=== PATIENT | female | born 1980 | race Caucasian/White ===

== ENCOUNTER 2019-08-20 17:40 | Emergency (ER) | payer OTHER ==
[~2019-08-20] VITALS: Ht 149.9 cm; Wt 54.4 kg
--- NOTE | 2019-08-20 17:42 | NUR ---
Patient was assisted by casino floor walker RA 62 [facility] to ER Bed 14 when the patient suddenly loss her balance and hit her head on the bed. -KO. Hematoma noted on the forehead and reported to AD Bass.
--- NOTE | 2019-08-20 18:12 | NUR ---
PT BROUGHT IN TO EMERGENCY ROOM FOR C/C ETOH ABUSE WILL CONTIUE TO MONITOR
--- NOTE | 2019-08-20 18:21 | NUR ---
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
[2019-08-20 18:26] LABS: BASOPHILS # (AUTO) 0.1 /CMM (0.0-0.2); BASOPHILS % (AUTO) 0.5 % (0.0-2.0); EOSINOPHILS % (AUTO) 0.9 % (0.0-6.0); HEMATOCRIT 38 % (33-45); HEMOGLOBIN 12.4 g/dL (11.5-14.8); LYMPHOCYTES # (AUTO) 2.9 /CMM (0.8-4.8); LYMPHOCYTES % (AUTO) 30.6 % (20.0-44.0); MEAN CORPUSCULAR HGB CONC 33 g/dl (31.0-36.0); MEAN CORPUSCULAR VOLUME 92 fL (82-100); MONOCYTES # (AUTO) 0.5 /CMM (0.1-1.30); MONOCYTES % (AUTO) 5.7 % (2.0-12.0); NEUTROPHILS % (AUTO) 62.3 % (43.0-81.0); PLATELET COUNT (AUTO) 392 /CMM (150-450); RED BLOOD CELL COUNT(AUTO) 4.14 MIL/uL (4.0-5.2); WHITE BLOOD COUNT (AUTO) 9.6 K/uL (4.3-11.0)
[2019-08-20] MEDS ORDERED: IV NS 0.9% 1,000 ML BAG IV ONE (18:30)
[2019-08-20 18:52] LABS: ALBUMIN 2.9 g/dL (3.4-5.0); BILIRUBIN,DIRECT 0.1 mg/dL (0.0-0.2); BILIRUBIN,TOTAL 0.2 mg/dL (0.2-1.0); CALCIUM, SERUM 8.3 mg/dL (8.5-10.1); CREATININE 0.7 mg/dL (0.6-1.3); TOTAL PROTEIN, SERUM 6.6 g/dL (6.4-8.2)
[2019-08-20 18:55] LABS: POTASSIUM 2.7 mmol/L (3.5-5.1)
[2019-08-20] MEDS ORDERED: POTASSIUM CL. PREMIX PERIPHER. 50 ML ONE (20:35)
[2019-08-20] MEDS ORDERED: POTASSIUM CL. PREMIX PERIPHER. 50 ML IV SCH (21:00)
--- NOTE | 2019-08-20 23:40 | NUR ---
PT WOKE UP AND BECAME VERBALLY AGGRESSIVE. ATTEMPTED TO ELOPE FROM FACILITY. PT ESCORTED BACK TO BED. HOSPITAL SECURITY AT BEDSIDE AND DR. CONNIE SHAIKH.
--- NOTE | 2019-08-20 23:55 | NUR ---
PT REMAINS CALM AND COOPERATIVE. VITAL SIGNS STABLE. NO ACUTE DISTRESS NOTED AT THIS TIME. WILL CONTINUE TO MONITOR.
[2019-08-21] MEDS ORDERED: diphenhydrAMINE HCL 50 MG/ML VIAL IM ONE
[2019-08-21] MEDS ORDERED: HALOPERIDOL LACTATE INJ 5 MG/ML VIAL IM ONE
[2019-08-21] MEDS ORDERED: LORAZEPAM INJ 2 MG/ML VIAL IM ONE
[2019-08-21 07:23] VITALS: BP 121/72
--- NOTE | 2019-08-21 07:23 | NUR ---
IV removed. Catheter intact and site benign. Pressure and 4x4 applied to site. No bleeding noted. Patient discharged to home in stable condition. Written and verbal after care instructions given. Patient verbalizes understanding of instruction.
== END 2019-08-21 07:27 | disposition home or self-care (01) ==
LOC: ER 17:42
DX: S00.83XA Contusion of other part of head, initial encounter (principal); F10.129 Alcohol abuse with intoxication, unspecified; E87.6 Hypokalemia; E86.0 Dehydration; R41.82 Altered mental status, unspecified; F32.9 Major depressive disorder, single episode, unspecified; Y90.8 Blood alcohol level of 240 mg/100 ml or more; W18.09XA Striking against other object with subsequent fall, initial encounter; Y93.89 Activity, other specified; Y92.89 Other specified places as the place of occurrence of the external cause; Y99.8 Other external cause status
CPT/HCPCS: 36415; 70450; 80048; 80076; 80307; 84703; 85025; 96360; 99284; J3480; J7030; G0480